=== PATIENT | male | born 1960 | race Caucasian/White ===

== ENCOUNTER 2018-02-28 08:57 | Emergency (ER) | payer MEDICARE, MEDICAID ==
[~2018-02-28] VITALS: Ht 175.3 cm; Wt 96.0 kg
[~2018-02-28 08:57] MED LIST: ASEN10TA9 SL; BENZ1TAB61 PO; CARB200T4 PO; CLON1TAB11 PO; ENAL20TA PO; FENO145T32 PO; FLUT100B INH; LORA10TA62 PO; MELO15TA24 PO; PRAZ1CAP2 PO; PROP60TA PO; QUET400T PO; ROSU20TA PO; TRAZ-137 PO; VENL150C6 PO; ZIPR40CA2 PO
[2018-02-28] MEDS ORDERED: MECLIZINE CHEWABLE 25 MG TAB PO ONE (09:30)
[2018-02-28] MEDS ORDERED: MECLIZINE CHEWABLE 25 MG TAB ONE (09:36)
[2018-02-28 09:49] LABS: BASOPHILS # (AUTO) 0.04 x10^3/uL (0-0.1); BASOPHILS % (AUTO) 1 % (0-1); EOSINOPHILS # (AUTO) 0.19 x10^3/uL (0-0.4); EOSINOPHILS % (AUTO) 3 % (1-7); LYMPHOCYTES % (AUTO) 26 % (22-44); MD NO; MEAN CORPUSCULAR HEMOGLOBIN 31.5 pg (27.5-34.5); MEAN CORPUSCULAR HGB CONC 34.6 g/dL (33.2-36.2); MEAN CORPUSCULAR VOLUME 91.1 fL (81-97); MEAN PLATELET VOLUME 7.3 fL (7.4-10.4); MONOCYTES # (AUTO) 0.62 x10^3/uL (0.2-0.8); MONOCYTES % (AUTO) 8 % (2-9); NEUTROPHILS # (AUTO) 4.59 x10^3/uL (1.8-6.8); NEUTROPHILS % (AUTO) 63 % (42-75); PLATELET COUNT 256 x10^3/uL (130-400); RED BLOOD COUNT 4.55 x10^6/uL (4.38-5.82); RED CELL DISTRIBUTION WIDTH 12.9 % (9.4-14.8)
[2018-02-28 10:03] LABS: ALANINE AMINOTRANSFERASE 31 U/L (12-78); ALBUMIN 3.5 g/dL (3.4-5.0); ANION GAP 5 mmol/L (5-15); CALCIUM 8.2 mg/dL (8.5-10.1); CHLORIDE 98 mmol/L (98-107); CREATININE 0.82 mg/dL (0.7-1.3)
[2018-02-28 10:07] LABS: ALKALINE PHOSPHATASE 77 U/L (45-117); BILIRUBIN,TOTAL 0.3 mg/dL (0.2-1.0); TOTAL PROTEIN 6.9 g/dL (6.4-8.2); TROPONIN I < 0.015 ng/mL (0.000-0.045)
[2018-02-28 10:10] VITALS: BP 144/86
== END 2018-02-28 11:18 | disposition home or self-care (01) ==
LOC: ED 10:19
DX: H81.392 Other peripheral vertigo, left ear (principal); I10 Essential (primary) hypertension; J44.9 Chronic obstructive pulmonary disease, unspecified; E78.5 Hyperlipidemia, unspecified; R51 Headache; F20.9 Schizophrenia, unspecified; F17.200 Nicotine dependence, unspecified, uncomplicated; Z79.899 Other long term (current) drug therapy
CPT/HCPCS: 36415; 70450; 80053; 80307; 84484; 85025; 93005; 99285

== ENCOUNTER 2019-09-14 00:29 | Inpatient (IN) | payer MEDICARE, MEDICAID ==
[~2019-09-14] VITALS: Ht 175.3 cm; Wt 98.1 kg
[~2019-09-14 00:29] MED LIST changes: -ROSU20TA PO; +ROSU20TA2 PO; -TRAZ-137 PO; +TRAZ-175 PO
[2019-09-15] MEDS ORDERED: ONDANSETRON ODT 4 MG PO PRN (00:30)
[2019-09-15] MEDS ORDERED: BISACODYL 10 MG SUPP PR PRN (00:30)
[2019-09-15] MEDS ORDERED: ACETAMINOPHEN 325 MG TABLET PO PRN (00:30)
[2019-09-15] MEDS ORDERED: POLYETHYLENE GLYCOL 17 GM PACKET PO PRN (00:30)
[2019-09-15] MEDS ORDERED: DOCUSATE 100 MG CAPSULE PO PRN (00:30)
[2019-09-15 01:10] VITALS: BP_SYST 123; BP_SYST 131; BP_DIAS 79; BP_DIAS 91
[2019-09-15] MEDS ORDERED: ALPRazolam 1MG TAB PO PRN (01:30)
[2019-09-15] MEDS ORDERED: ZIPRASIDONE 40MG CAPSULE PO PRN (01:30)
[2019-09-15 01:39] VITALS: BP 131/91
[2019-09-15] MEDS ORDERED: QUET50TA9 PO (06:32)
[2019-09-15] MEDS ORDERED: QUET400T4 PO ×2 (06:33→10:03)
[2019-09-15] MEDS ORDERED: ALPR2TAB2 PO (06:34)
[2019-09-15] MEDS ORDERED: ZIPR80CA2 PO ×2 (06:35→10:03)
[2019-09-15 07:51] LABS: ALBUMIN 3.9 g/dL (3.4-5.0); BILIRUBIN, DIRECT 0.2 mg/dL (0.1-0.2)
[2019-09-15 07:53] VITALS: BP 129/88
[2019-09-15 07:54] LABS: BILIRUBIN,INDIRECT 0.4 mg/dL (0.0-2.0); BILIRUBIN,TOTAL 0.6 mg/dL (0.2-1.0); FREE T4 (FREE THYROXINE) 0.85 ng/dL (0.76-1.46); TOTAL PROTEIN 7.2 g/dL (6.4-8.2)
[2019-09-15] MEDS: NICOTINE 21 MG/24 HR PATCH.TD24 TD SCH (08:30)
[2019-09-15] MEDS ORDERED: LORazepam 0.5MG TABLET PO PRN (09:00)
[2019-09-15] MEDS ORDERED: BENZ1TAB61 PO (10:03)
[2019-09-15] MEDS ORDERED: TAMS-11 PO (10:03)
[2019-09-15] MEDS ORDERED: QUET100T4 PO (10:03)
[2019-09-15] MEDS ORDERED: METH500T7 PO (10:03)
[2019-09-15] MEDS ORDERED: LINA145C PO (10:03)
[2019-09-15] MEDS ORDERED: ALPR1TAB6 PO (10:03)
[2019-09-15] MEDS ORDERED: BUPR-173 PO (10:03)
[2019-09-15 12:46] LABS: MICROSCOPIC INDICATED
[2019-09-15 12:54] LABS: CULTURE INDICATED? YES
[2019-09-15] MEDS: LORazepam 0.5MG TABLET PO SCH ×3 (13:59→20:34)
[2019-09-15 15:54] LABS: CHOL/HDL RATIO 4.9; LDL/HDL RATIO 3.3 (0.5-3.0)
[2019-09-15 19:46] VITALS: BP 106/69
[2019-09-15] MEDS: ZIPRASIDONE 40MG CAPSULE PO SCH (20:33)
[2019-09-15] MEDS: TAMSULOSIN 0.4 MG CAP.ER.24H PO SCH (20:34)
[2019-09-15] MEDS: METHOCARBAMOL 500 MG TABLET PO SCH (20:41)
[2019-09-15] MEDS: QUETIAPINE 200 MG TABLET PO SCH (20:41)
[2019-09-15] MEDS ORDERED: CALCIUM CARBONATE 500 MG TAB.CHEW ONE (20:44)
[2019-09-16 07:48] VITALS: BP 116/77
[2019-09-16 08:16] LABS: CHOL/HDL RATIO 4.7
[2019-09-16] MEDS: METHOCARBAMOL 500 MG TABLET PO SCH ×2 (08:54→20:38)
[2019-09-16] MEDS: LORazepam 0.5MG TABLET PO SCH ×3 (08:54→20:38)
[2019-09-16] MEDS: NICOTINE 21 MG/24 HR PATCH.TD24 TD SCH (08:54)
[2019-09-16 19:57] VITALS: BP 117/77
[2019-09-16] MEDS: TAMSULOSIN 0.4 MG CAP.ER.24H PO SCH (20:37)
[2019-09-16] MEDS: ZIPRASIDONE 40MG CAPSULE PO SCH (20:38)
[2019-09-16] MEDS: QUETIAPINE 200 MG TABLET PO SCH (20:38)
[2019-09-17 07:24] VITALS: BP 96/95
[2019-09-17] MEDS: BUPROPION SR 100 MG TABLET PO SCH (08:15)
[2019-09-17] MEDS: LORazepam 0.5MG TABLET PO SCH ×3 (08:15→20:43)
[2019-09-17] MEDS: METHOCARBAMOL 500 MG TABLET PO SCH ×2 (08:15→20:42)
[2019-09-17] MEDS: NICOTINE 21 MG/24 HR PATCH.TD24 TD SCH (08:16)
[2019-09-17 19:47] VITALS: BP 114/75
[2019-09-17] MEDS: ZIPRASIDONE 40MG CAPSULE PO SCH (20:43)
[2019-09-17] MEDS: TAMSULOSIN 0.4 MG CAP.ER.24H PO SCH (20:43)
[2019-09-17] MEDS: QUETIAPINE 200 MG TABLET PO SCH (20:43)
[2019-09-17] MEDS ORDERED: CALCIUM CARBONATE 500 MG TAB.CHEW PO PRN (21:00)
[2019-09-18 07:00] VITALS: BP 144/86
[2019-09-18] MEDS: BUPROPION SR 100 MG TABLET PO SCH (09:30)
[2019-09-18] MEDS: LORazepam 0.5MG TABLET PO SCH ×3 (09:31→20:15)
[2019-09-18] MEDS: METHOCARBAMOL 500 MG TABLET PO SCH ×2 (09:31→20:15)
[2019-09-18] MEDS: NICOTINE 21 MG/24 HR PATCH.TD24 TD SCH (09:31)
[2019-09-18 19:49] VITALS: BP 133/87
[2019-09-18] MEDS: ZIPRASIDONE 40MG CAPSULE PO SCH (20:15)
[2019-09-18] MEDS: QUETIAPINE 200 MG TABLET PO SCH (20:16)
[2019-09-18] MEDS: TAMSULOSIN 0.4 MG CAP.ER.24H PO SCH (20:16)
[2019-09-19 07:28] VITALS: BP 126/70
[2019-09-19] MEDS: BUPROPION SR 100 MG TABLET PO SCH (08:34)
[2019-09-19] MEDS: METHOCARBAMOL 500 MG TABLET PO SCH (08:34)
[2019-09-19] MEDS: LORazepam 0.5MG TABLET PO SCH (08:34)
[2019-09-19] MEDS: NICOTINE 21 MG/24 HR PATCH.TD24 TD SCH (08:35)
[2019-09-19] MEDS ORDERED: TAMS-11 PO (09:24)
[2019-09-19] MEDS ORDERED: ZIPR40CA2 PO (09:24)
[2019-09-19] MEDS ORDERED: BUPR-173 PO (09:24)
[2019-09-19] MEDS ORDERED: METH500T7 PO (09:24)
[2019-09-19] MEDS ORDERED: QUET200T PO (09:24)
[2019-09-19] MEDS ORDERED: NICO-487 TD (09:24)
== END 2019-09-19 10:35 | disposition home or self-care (01) | DRG 885 ==
LOC: 3E 09-15 01:16
PROVIDERS: ADMIT Psychiatry & Neurology Psychosomatic Medicine; ATTEND Psychiatry & Neurology Psychosomatic Medicine
PROC: 5A09357 Assistance with Respiratory Ventilation, Less than 24 Consecutive Hours, Continuous Positive Airway Pressure (ICD-10-PCS; principal; 2019-09-15)
PROC: 5A09357 Assistance with Respiratory Ventilation, Less than 24 Consecutive Hours, Continuous Positive Airway Pressure (ICD-10-PCS; 2019-09-16)
PROC: 5A09357 Assistance with Respiratory Ventilation, Less than 24 Consecutive Hours, Continuous Positive Airway Pressure (ICD-10-PCS; 2019-09-18)
DX: F31.60 Bipolar disorder, current episode mixed, unspecified (principal); F28 Other psychotic disorder not due to a substance or known physiological condition; E78.5 Hyperlipidemia, unspecified; F12.10 Cannabis abuse, uncomplicated; F17.200 Nicotine dependence, unspecified, uncomplicated; F41.1 Generalized anxiety disorder; F43.10 Post-traumatic stress disorder, unspecified; I10 Essential (primary) hypertension; K58.9 Irritable bowel syndrome, unspecified; Z82.3 Family history of stroke; G47.33 Obstructive sleep apnea (adult) (pediatric); R33.9 Retention of urine, unspecified
CPT/HCPCS: 36415; 71045; 80048; 80061; 80076; 80307; 81001; 82040; 82607; 84439; 84443; 85025; 87086; 87147; 87491; 87591; 93005; 94660; 99284

== ENCOUNTER 2019-09-14 17:57 | Emergency (ER) | payer MEDICARE, MEDICAID ==
[~2019-09-14] VITALS: Ht 177.8 cm; Wt 100.0 kg
--- NOTE | 2019-09-14 18:04 | NUR ---
DR GABBY MOON OF PT
[2019-09-14 18:27] LABS: BASOPHILS # (AUTO) 0.02 x10^3/uL (0-0.1); BASOPHILS % (AUTO) 0 % (0-1); EOSINOPHILS # (AUTO) 0.07 x10^3/uL (0-0.4); EOSINOPHILS % (AUTO) 1 % (1-7); LYMPHOCYTES # (AUTO) 1.86 x10^3/uL (1-3.4); LYMPHOCYTES % (AUTO) 18 % (22-44); MD NO; MEAN CORPUSCULAR HEMOGLOBIN 30.5 pg (27.5-34.5); MEAN CORPUSCULAR VOLUME 89.5 fL (81-97); MEAN PLATELET VOLUME 8.6 fL (7.4-10.4); MONOCYTES # (AUTO) 0.42 x10^3/uL (0.2-0.8); MONOCYTES % (AUTO) 4 % (2-9); NEUTROPHILS # (AUTO) 8.26 x10^3/uL (1.8-6.8); NEUTROPHILS % (AUTO) 78 % (42-75); PLATELET COUNT 223 x10^3/uL (130-400); RED BLOOD COUNT 5.11 x10^6/uL (4.38-5.82); RED CELL DISTRIBUTION WIDTH 13.8 % (9.4-14.8)
[2019-09-14 18:38] LABS: ANION GAP 10 mmol/L (5-15); CHLORIDE 107 mmol/L (98-107); CREATININE 1.06 mg/dL (0.7-1.3); SALICYLATE LEVEL 3.9 mg/dL (2.8-20.0)
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
[2019-09-14 20:10] LABS: AMPHETAMINE SCREEN, URINE Negative (Negative); BARBITURATE SCREEN, URINE Negative (Negative); BENZODIAZEPINE SCREEN, URINE Positive (Negative); CANNABINOID SCREEN, URINE Negative (Negative); COCAINE SCREEN, URINE Negative (Negative); METHADONE SCREEN, URINE Negative (Negative); OPIATE SCREEN, URINE Negative (Negative)
--- NOTE | 2019-09-14 20:39 | NUR ---
TP RN: CATERINA called they are aware of patient packet faxed to: [facility]
--- NOTE | 2019-09-14 20:43 | NUR ---
Friend Nicole [phone]. Patient has given permission to give Nicole all information.
[2019-09-14] MEDS ORDERED: QUETIAPINE 100MG TABLET ONE (20:59)
[2019-09-14] MEDS ORDERED: QUETIAPINE 100MG TABLET PO SCH (21:00)
[2019-09-14] MEDS ORDERED: NICOTINE 7 MG/24 HR PATCH.TD24 ONE (21:58)
[2019-09-14] MEDS ORDERED: NICOTINE 7 MG/24 HR PATCH.TD24 TD SCH (22:00)
--- NOTE | 2019-09-14 22:10 | NUR ---
Intake call received from . There is no confirmation of acceptance at this time.
[2019-09-14] MEDS ORDERED: OLANZAPINE 10 MG TABLET ONE (23:15)
--- NOTE | 2019-09-14 23:18 | NUR ---
Pt has been accepted by [facility], will be admitted after midnight.
--- NOTE | 2019-09-14 23:19 | NUR ---
Pt given Zyprexa for continued c/o anxiety. Pt also states he feels he is in withdrawal from his Xanax, has not missed a dose yet.
--- NOTE | 2019-09-14 23:29 | NUR ---
EKG DONE ON REQUEST OF THE BEHAVIOR UN[facility].
--- NOTE | 2019-09-14 23:30 | NUR ---
TP RN: PT ACCEPTED TO [facility]
--- NOTE | 2019-09-15 00:36 | NUR ---
Pt reports his anxiety has improved after taking the Zyprexa.
--- NOTE | 2019-09-15 00:54 | NUR ---
Report called to Behavioral Health
[2019-09-15 01:06] VITALS: BP 118/88
[2019-09-15] MEDS ORDERED: QUET50TA9 PO (06:32)
[2019-09-15] MEDS ORDERED: QUET400T4 PO ×2 (06:33→10:03)
[2019-09-15] MEDS ORDERED: ALPR2TAB2 PO (06:34)
[2019-09-15] MEDS ORDERED: ZIPR80CA2 PO ×2 (06:35→10:03)
[2019-09-15] MEDS ORDERED: NEOSPORIN OINT. PKT 1 PACKET ONE (07:31)
[2019-09-15] MEDS ORDERED: OLANZAPINE 10 MG TABLET PO SCH (09:00)
[2019-09-15] MEDS ORDERED: LINA145C PO (10:03)
[2019-09-15] MEDS ORDERED: QUET100T4 PO (10:03)
[2019-09-15] MEDS ORDERED: ALPR1TAB6 PO (10:03)
[2019-09-15] MEDS ORDERED: BUPR-173 PO (10:03)
[2019-09-15] MEDS ORDERED: BENZ1TAB61 PO (10:03)
[2019-09-15] MEDS ORDERED: TAMS-11 PO (10:03)
[2019-09-15] MEDS ORDERED: METH500T7 PO (10:03)
== END 2019-09-15 01:14 | disposition other institution (70) ==
LOC: ED 18:44
DX: R45.851 Suicidal ideations (principal); F25.0 Schizoaffective disorder, bipolar type; F41.9 Anxiety disorder, unspecified; R00.0 Tachycardia, unspecified; I10 Essential (primary) hypertension; J44.9 Chronic obstructive pulmonary disease, unspecified; F20.9 Schizophrenia, unspecified; E78.5 Hyperlipidemia, unspecified
CPT/HCPCS: 36415; 80048; 80307; 82040; 84443; 85025; 99284

== ENCOUNTER 2019-09-19 14:16 | Emergency (ER) | payer MEDICARE, MEDICAID ==
[~2019-09-19] VITALS: Ht 175.3 cm; Wt 100.5 kg
[~2019-09-19 14:16] MED LIST changes: +ALPR1TAB6 PO; +ALPR2TAB2 PO; +BUPR-173 PO; +LINA145C PO; +METH500T7 PO; +NICO-487 TD; +QUET100T4 PO; +QUET200T PO; +QUET400T4 PO; +QUET50TA9 PO; +TAMS-11 PO; +ZIPR80CA2 PO
[2019-09-19 14:19] VITALS: BP 148/91
--- NOTE | 2019-09-19 14:35 | NUR ---
PATIENT LEFT THE HOSPITAL TODAY FOR SI HOLD, WENT HOME, AND THEN FELT SUICIDAL AGAIN AND CAME BACK TO THE ER. HE STATES HE IS SUICIDAL.
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
--- NOTE | 2019-09-19 14:42 | NUR ---
[facility] TALKING TO PATIENT.
[2019-09-19 14:43] LABS: BASOPHILS # (AUTO) 0.05 x10^3/uL (0-0.1); BASOPHILS % (AUTO) 1 % (0-1); EOSINOPHILS # (AUTO) 0.13 x10^3/uL (0-0.4); EOSINOPHILS % (AUTO) 2 % (1-7); LYMPHOCYTES # (AUTO) 2.24 x10^3/uL (1-3.4); LYMPHOCYTES % (AUTO) 26 % (22-44); MD NO; MEAN CORPUSCULAR HEMOGLOBIN 30.4 pg (27.5-34.5); MEAN CORPUSCULAR HGB CONC 33.7 g/dL (33.2-36.2); MEAN CORPUSCULAR VOLUME 90.1 fL (81-97); MEAN PLATELET VOLUME 8.1 fL (7.4-10.4); MONOCYTES # (AUTO) 0.71 x10^3/uL (0.2-0.8); MONOCYTES % (AUTO) 8 % (2-9); NEUTROPHILS # (AUTO) 5.46 x10^3/uL (1.8-6.8); NEUTROPHILS % (AUTO) 64 % (42-75); PLATELET COUNT 223 x10^3/uL (130-400); RED BLOOD COUNT 4.92 x10^6/uL (4.38-5.82); RED CELL DISTRIBUTION WIDTH 13.6 % (9.4-14.8)
[2019-09-19 14:53] LABS: ALANINE AMINOTRANSFERASE 44 U/L (12-78); ALBUMIN 3.9 g/dL (3.4-5.0); ANION GAP 10 mmol/L (5-15); CHLORIDE 108 mmol/L (98-107); CREATININE 1.12 mg/dL (0.7-1.3); SALICYLATE LEVEL 2.7 mg/dL (2.8-20.0)
[2019-09-19] MEDS ORDERED: LORazepam 1MG TABLET ONE (14:54)
[2019-09-19 14:55] LABS: ALKALINE PHOSPHATASE 74 U/L (45-117); BILIRUBIN,TOTAL 0.2 mg/dL (0.2-1.0); TOTAL PROTEIN 7.1 g/dL (6.4-8.2)
[2019-09-19] MEDS ORDERED: LORazepam 1MG TABLET PO ONE (15:00)
--- NOTE | 2019-09-19 15:35 | NUR ---
REPORT RECEIVED FROM TAMIKO PAEZ. ASSUMED CARE
--- NOTE | 2019-09-19 15:42 | NUR ---
ASSUMED CARE. PLACED PT EDUARDOS IN PT BELONGING BAG. PT STATES THAT HE HAS 900 DOLLARS IN HIS WALLET. DID NOT OPEN WALLET TO CONFIRM.
--- NOTE | 2019-09-19 16:41 | NUR ---
THROUGHTPUT: [facility] HAS ACCEPTED PATIENT FOR ADMIT
== END 2019-09-19 16:59 ==
LOC: ED 15:19
DX: F32.9 Major depressive disorder, single episode, unspecified (principal); R45.851 Suicidal ideations; F22 Delusional disorders; I10 Essential (primary) hypertension; E78.5 Hyperlipidemia, unspecified; J44.9 Chronic obstructive pulmonary disease, unspecified; F20.9 Schizophrenia, unspecified
CPT/HCPCS: 36415; 80053; 80307; 85025; 99284

== ENCOUNTER 2019-10-09 19:30 | Emergency (ER) | payer MEDICARE, MEDICAID ==
[~2019-10-09] VITALS: Ht 175.3 cm; Wt 104.0 kg
[~2019-10-09 19:30] MED LIST changes: -ENAL20TA PO; +ENAL20TA9 PO
[2019-10-09 19:33] VITALS: BP 111/70
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
[2019-10-09] MEDS ORDERED: DIPHENHYDRAMINE 50 MG/ML, 1ML ONE (20:20)
--- NOTE | 2019-10-09 20:24 | NUR ---
pt medicated per jul, lab at bedside
[2019-10-09] MEDS ORDERED: DIPHENHYDRAMINE 50 MG/ML, 1ML IM ONE (20:30)
[2019-10-09 20:37] LABS: BASOPHILS # (AUTO) 0.07 x10^3/uL (0-0.1); BASOPHILS % (AUTO) 1 % (0-1); EOSINOPHILS # (AUTO) 0.28 x10^3/uL (0-0.4); EOSINOPHILS % (AUTO) 2 % (1-7); LYMPHOCYTES # (AUTO) 3.49 x10^3/uL (1-3.4); LYMPHOCYTES % (AUTO) 30 % (22-44); MD NO; MEAN CORPUSCULAR HEMOGLOBIN 30.5 pg (27.5-34.5); MEAN CORPUSCULAR HGB CONC 34.2 g/dL (33.2-36.2); MEAN PLATELET VOLUME 8.4 fL (7.4-10.4); MONOCYTES # (AUTO) 1.06 x10^3/uL (0.2-0.8); MONOCYTES % (AUTO) 9 % (2-9); NEUTROPHILS # (AUTO) 6.63 x10^3/uL (1.8-6.8); NEUTROPHILS % (AUTO) 58 % (42-75); PLATELET COUNT 217 x10^3/uL (130-400); RED BLOOD COUNT 4.63 x10^6/uL (4.38-5.82); RED CELL DISTRIBUTION WIDTH 13.6 % (9.4-14.8)
[2019-10-09 20:47] LABS: ALBUMIN 3.7 g/dL (3.4-5.0); ANION GAP 5 mmol/L (5-15); CHLORIDE 104 mmol/L (98-107); CREATININE 1.15 mg/dL (0.7-1.3)
== END 2019-10-09 22:15 | disposition home or self-care (01) ==
LOC: ED 21:05
DX: G24.02 Drug induced acute dystonia (principal); K59.00 Constipation, unspecified; J44.9 Chronic obstructive pulmonary disease, unspecified; I10 Essential (primary) hypertension; F20.9 Schizophrenia, unspecified; F17.210 Nicotine dependence, cigarettes, uncomplicated
CPT/HCPCS: 36415; 80048; 82040; 85025; 96372; 99283; 99406; J1200

== ENCOUNTER 2019-10-10 01:58 | Emergency (ER) | payer MEDICARE, MEDICAID ==
[~2019-10-10] VITALS: Ht 175.3 cm; Wt 106.0 kg
--- NOTE | 2019-10-10 02:27 | NUR ---
assessment made. PA at bedside.
[2019-10-10] MEDS ORDERED: LORazepam 1MG TABLET PO ONE (02:30)
[2019-10-10] MEDS ORDERED: LORazepam 1MG TABLET ONE (02:32)
--- NOTE | 2019-10-10 02:34 | NUR ---
patient medicated per MAR.
[2019-10-10 02:59] VITALS: BP 115/81
--- NOTE | 2019-10-10 02:59 | NUR ---
patient discharged with prescription and instruction. verbalized understanding.
== END 2019-10-10 03:08 ==
LOC: ED 02:38
DX: G24.02 Drug induced acute dystonia (principal); R11.0 Nausea
CPT/HCPCS: 99283

== ENCOUNTER 2020-02-27 19:36 | Emergency (ER) | payer MEDICARE, MEDICAID ==
[~2020-02-27] VITALS: Ht 175.3 cm; Wt 104.0 kg
--- NOTE | 2020-02-27 20:00 | NUR ---
Note joanne in EDM - 02/27/20 at 2034 by AKIL Pt agitated and tearful, yelling out that he wants to , stating he needs to call mother to let her know he's ok. This RN allowed pt to use phone at d/c desk to call mother. Able to reach her. This RN and sonia remain with pt. Pt needed reminders not to use profanity at desk. Pt had effective conversation with mother. Back to [facility] without issue. Provided with michelle. Sonia remains in immediate vicinity of pt. Call ram within reach.
--- NOTE | 2020-02-27 20:20 | NUR ---
Pt changed into hospital gown. Provided with hospital socks. Personal belongings placed in 2 patient belongings bags with pt's labels affixed to each bag, bags placed in locker. Pt has glasses within his posession. Safety doors utilized in pt's room. Sitter remains within immediate vicinity of pt
[2020-02-27 20:26] LABS: BASOPHILS % (AUTO) 1 % (0-1); EOSINOPHILS % (AUTO) 3 % (1-7); LYMPHOCYTES % (AUTO) 30 % (22-44); MEAN CORPUSCULAR HEMOGLOBIN 30.4 pg (27.5-34.5); MEAN CORPUSCULAR HGB CONC 34.2 g/dL (33.2-36.2); MONOCYTES % (AUTO) 8 % (2-9); NEUTROPHILS % (AUTO) 58 % (42-75); PLATELET COUNT 224 x10^3/uL (130-400); RED BLOOD COUNT 4.72 x10^6/uL (4.38-5.82); RED CELL DISTRIBUTION WIDTH 13.8 % (9.4-14.8)
[2020-02-27 20:33] LABS: MD NO
--- NOTE | 2020-02-27 20:35 | NUR ---
Resting comfortably on stretcher. No s/sx acute distress. Visible chest rise/fall noted. Sitter remains at bedside
[2020-02-27 20:36] LABS: ALBUMIN 3.5 g/dL (3.4-5.0); ANION GAP 5 mmol/L (5-15); CALCIUM 8.7 mg/dL (8.5-10.1); CHLORIDE 110 mmol/L (98-107); CREATININE 0.98 mg/dL (0.7-1.3); SALICYLATE LEVEL 3.1 mg/dL (2.8-20.0)
--- NOTE | 2020-02-27 21:08 | NUR ---
Provided pt with snack. Resting comfortably on stretcher. Call light within reach. Sitter remains in immediate vicinity of pt
[2020-02-27 21:50] LABS: AMPHETAMINE SCREEN, URINE Negative (Negative); BARBITURATE SCREEN, URINE Negative (Negative); BENZODIAZEPINE SCREEN, URINE Negative (Negative); CANNABINOID SCREEN, URINE Negative (Negative); COCAINE SCREEN, URINE Negative (Negative); METHADONE SCREEN, URINE Negative (Negative); OPIATE SCREEN, URINE Negative (Negative)
--- NOTE | 2020-02-27 22:03 | NUR ---
A&o x4, answering questions appropriately. States long hx of psych disorders including schizoaffective disorder and bipolar. Per pt, his psych doctor has changed x4 over last year with each new provider making adjustments to meds. Pt states new doctor wanted him to taper psych meds. Reports taking decreased seroquel/klonopin doses for the last few days. Robinson increased auditory hallucinations with associated SI thoughts today. Took klonopin x3 today. States he has been thinking about jumping off his building. Denies pain. Denies fever/chills. Denies N/V/D. Ambulating independently, steady gait
--- NOTE | 2020-02-27 23:10 | NUR ---
Pt reports feeling increasingly more anxious. Requests dose of ativan. MD aware. Pt remains cooperative. Sitter remains within immediate vicinity
[2020-02-27] MEDS ORDERED: LORazepam 1MG TABLET ONE (23:14)
--- NOTE | 2020-02-27 23:15 | NUR ---
Telepsych in progress
[2020-02-27] MEDS ORDERED: LORazepam 1MG TABLET PO ONE (23:30)
--- NOTE | 2020-02-28 00:35 | NUR ---
Resting comfortably on stretcher. No s/sx acute distress. Visible chest rise/fall noted. Sitter remains within immediate vicinity of pt
--- NOTE | 2020-02-28 00:36 | NUR ---
Throughput RN: [facility].
--- NOTE | 2020-02-28 01:12 | NUR ---
[facility] accepts. Accepting doctor is Dr. Stewart.
--- NOTE | 2020-02-28 01:30 | NUR ---
Report given to Madalyn MORRISON
--- NOTE | 2020-02-28 02:47 | NUR ---
Pt resting comfortably on stretcher. No s/sx acute distress. Equal chest rise/fall noted. Sitter remains at bedside
[2020-02-28 03:33] VITALS: BP 112/70
== END 2020-02-28 03:37 | disposition other institution (70) ==
LOC: ED 21:46
DX: R45.851 Suicidal ideations (principal); F25.8 Other schizoaffective disorders; F17.200 Nicotine dependence, unspecified, uncomplicated; I10 Essential (primary) hypertension; E78.5 Hyperlipidemia, unspecified; J44.9 Chronic obstructive pulmonary disease, unspecified
CPT/HCPCS: 36415; 80048; 80307; 82040; 85025; 99284

== ENCOUNTER 2020-03-16 18:57 | Emergency (ER) | payer MEDICARE, MEDICAID ==
[~2020-03-16] VITALS: Ht 177.8 cm; Wt 125.0 kg
[~2020-03-16 18:57] MED LIST changes: +PALI156D IM; +QUET100T PO
[2020-03-16 19:59] LABS: BASOPHILS % (AUTO) 1 % (0-1); EOSINOPHILS % (AUTO) 2 % (1-7); LYMPHOCYTES % (AUTO) 30 % (22-44); MEAN CORPUSCULAR HEMOGLOBIN 30.8 pg (27.5-34.5); MEAN CORPUSCULAR HGB CONC 34.3 g/dL (33.2-36.2); MEAN PLATELET VOLUME 8.3 fL (7.4-10.4); MONOCYTES % (AUTO) 10 % (2-9); NEUTROPHILS % (AUTO) 58 % (42-75); PLATELET COUNT 233 x10^3/uL (130-400); RED BLOOD COUNT 4.86 x10^6/uL (4.38-5.82); RED CELL DISTRIBUTION WIDTH 13.3 % (9.4-14.8)
--- NOTE | 2020-03-16 20:02 | NUR ---
task rn: pt ambulated to restroom and urine collected, pt sitting on wall
[2020-03-16 20:05] LABS: ALANINE AMINOTRANSFERASE 38 U/L (12-78); ALBUMIN 4.1 g/dL (3.4-5.0); ANION GAP 5 mmol/L (5-15); CALCIUM 9.5 mg/dL (8.5-10.1); CHLORIDE 109 mmol/L (98-107); MD NO; SALICYLATE LEVEL 3.2 mg/dL (2.8-20.0)
[2020-03-16 20:08] LABS: ALKALINE PHOSPHATASE 88 U/L (45-117); BILIRUBIN,TOTAL 0.5 mg/dL (0.2-1.0); CREATININE 0.97 mg/dL (0.7-1.3); TOTAL PROTEIN 7.4 g/dL (6.4-8.2)
[2020-03-16 20:17] LABS: MICROSCOPIC NOT IND
[2020-03-16 20:28] LABS: AMPHETAMINE SCREEN, URINE Negative (Negative); BARBITURATE SCREEN, URINE Negative (Negative); BENZODIAZEPINE SCREEN, URINE Negative (Negative); CANNABINOID SCREEN, URINE Negative (Negative); COCAINE SCREEN, URINE Negative (Negative); METHADONE SCREEN, URINE Negative (Negative); OPIATE SCREEN, URINE Negative (Negative)
--- NOTE | 2020-03-16 22:44 | NUR ---
PT IN ROOM AWAITING TELEPSYCH.
--- NOTE | 2020-03-16 22:45 | NUR ---
REPORT GIVEN TO JANETTE MORRISON.
[2020-03-16 23:10] VITALS: BP 153/101
--- NOTE | 2020-03-17 01:00 | NUR ---
Dr. Stewart accepted this referral for [facility]; patient will be admitted to [facility]; waiting for covid test result.
== END 2020-03-17 02:11 | disposition other institution (70) ==
LOC: ED 03-17 00:21
DX: F22 Delusional disorders (principal); F23 Brief psychotic disorder; F31.9 Bipolar disorder, unspecified; Z11.59 Encounter for screening for other viral diseases; R00.0 Tachycardia, unspecified; I10 Essential (primary) hypertension
CPT/HCPCS: 36415; 80053; 80307; 81003; 85025; 87635; 99284

== ENCOUNTER 2020-03-17 01:34 | Inpatient (IN) | payer MEDICARE, MEDICAID ==
[~2020-03-17] VITALS: Ht 175.3 cm; Wt 104.0 kg
[2020-03-17] MEDS ORDERED: BISACODYL 10 MG SUPP PR PRN (02:00)
[2020-03-17] MEDS ORDERED: POLYETHYLENE GLYCOL 17 GM PACKET PO PRN (02:00)
[2020-03-17] MEDS ORDERED: DOCUSATE 100 MG CAPSULE PO PRN (02:00)
[2020-03-17] MEDS ORDERED: ONDANSETRON ODT 4 MG PO PRN (02:00)
[2020-03-17] MEDS ORDERED: DIPHENHYDRAMINE 25 MG CAPSULE PO PRN (02:30)
[2020-03-17 02:42] VITALS: BP 150/101
[2020-03-17 03:06] VITALS: BP 150/101
[2020-03-17] MEDS ORDERED: QUETIAPINE 100MG TABLET PO ONE (03:30)
[2020-03-17] MEDS: NICOTINE 21 MG/24 HR PATCH.TD24 TD SCH (05:40)
[2020-03-17 07:23] VITALS: BP 122/74
[2020-03-17] MEDS: BENZTROPINE 1 MG TABLET PO SCH ×2 (07:50→20:18)
[2020-03-17] MEDS ORDERED: NICOTINE 21 MG/24 HR PATCH.TD24 TD ONE ×2 (09:00)
[2020-03-17] MEDS ORDERED: FLU VACC QS2020-21(6MOS UP)/PF 60MCG/0.5 ML SYR IM ONE (09:30)
[2020-03-17] MEDS: QUETIAPINE 100MG TABLET PO SCH (20:18)
[2020-03-17] MEDS: LORazepam 1MG TABLET PO PRN (20:18)
[2020-03-17] MEDS ORDERED: DOXEPIN 25 MG CAPSULE PO SCH (21:00)
[2020-03-17 22:43] VITALS: BP 143/79
[2020-03-18 07:27] VITALS: BP 130/69
[2020-03-18] MEDS: BENZTROPINE 1 MG TABLET PO SCH ×2 (08:08→20:04)
[2020-03-18] MEDS: NICOTINE 21 MG/24 HR PATCH.TD24 TD SCH (08:08)
[2020-03-18] MEDS: DIPHENHYDRAMINE 25 MG CAPSULE PO PRN ×2 (09:12→20:05)
[2020-03-18] MEDS: ACETAMINOPHEN 325 MG TABLET PO PRN (11:57)
[2020-03-18] MEDS: METHOCARBAMOL 500 MG TABLET PO PRN ×2 (15:35→20:04)
[2020-03-18] MEDS: QUETIAPINE 100MG TABLET PO SCH (20:05)
[2020-03-18] MEDS: LORazepam 1MG TABLET PO PRN (20:05)
[2020-03-18 20:06] VITALS: BP_SYST 156; BP_SYST 166; BP_DIAS 106; BP_DIAS 113
[2020-03-18 21:02] VITALS: BP 162/95
[2020-03-19 06:07] VITALS: BP 132/82
[2020-03-19 07:35] VITALS: BP 139/93
[2020-03-19] MEDS: BENZTROPINE 1 MG TABLET PO SCH ×2 (08:15→20:12)
[2020-03-19] MEDS: NICOTINE 21 MG/24 HR PATCH.TD24 TD SCH (08:16)
[2020-03-19] MEDS: ZIPRASIDONE 40MG CAPSULE PO SCH ×2 (12:18→20:13)
[2020-03-19] MEDS: METHOCARBAMOL 500 MG TABLET PO PRN (12:27)
[2020-03-19 12:40] VITALS: BP 151/91
[2020-03-19 18:52] VITALS: BP 144/95
[2020-03-19] MEDS: DIPHENHYDRAMINE 25 MG CAPSULE PO PRN (20:12)
[2020-03-19] MEDS: QUETIAPINE 100MG TABLET PO SCH (20:12)
[2020-03-19] MEDS: LORazepam 1MG TABLET PO PRN (20:13)
[2020-03-19] MEDS: HYDROCORTISONE CRM 2.5%, 20GM TP PRN (21:19)
[2020-03-20 07:25] VITALS: BP 138/82
[2020-03-20] MEDS: NICOTINE 21 MG/24 HR PATCH.TD24 TD SCH (08:47)
[2020-03-20] MEDS: BENZTROPINE 1 MG TABLET PO SCH ×2 (08:47→20:59)
[2020-03-20] MEDS: ZIPRASIDONE 40MG CAPSULE PO SCH ×2 (08:47→20:59)
[2020-03-20] MEDS: HYDROCORTISONE CRM 2.5%, 20GM TP PRN (09:06)
[2020-03-20] MEDS: LORazepam 1MG TABLET PO PRN ×2 (09:06→20:59)
[2020-03-20] MEDS: METHOCARBAMOL 500 MG TABLET PO PRN ×3 (09:06→20:59)
[2020-03-20] MEDS: DIPHENHYDRAMINE 25 MG CAPSULE PO PRN ×2 (16:32→20:59)
[2020-03-20 19:59] VITALS: BP 139/92
[2020-03-20] MEDS: QUETIAPINE 100MG TABLET PO SCH (20:59)
[2020-03-21] MEDS: TRAZODONE 100MG TABLET PO PRN ×2 (00:25→20:29)
[2020-03-21] MEDS: HYDROCORTISONE CRM 2.5%, 20GM TP PRN ×2 (00:26→20:34)
[2020-03-21] MEDS: LORazepam 1MG TABLET PO PRN ×3 (02:44→20:30)
[2020-03-21 07:09] VITALS: BP 142/84
[2020-03-21] MEDS: BENZTROPINE 1 MG TABLET PO SCH ×2 (07:48→20:29)
[2020-03-21] MEDS: ZIPRASIDONE 40MG CAPSULE PO SCH ×2 (07:48→20:29)
[2020-03-21] MEDS: NICOTINE 21 MG/24 HR PATCH.TD24 TD SCH (07:49)
[2020-03-21] MEDS: METHOCARBAMOL 500 MG TABLET PO PRN ×2 (14:49→20:29)
[2020-03-21 19:50] VITALS: BP 145/93
[2020-03-21] MEDS: QUETIAPINE 100MG TABLET PO SCH (20:29)
[2020-03-21] MEDS: DIPHENHYDRAMINE 25 MG CAPSULE PO PRN (20:29)
[2020-03-22 07:00] VITALS: BP 137/84
[2020-03-22] MEDS: NICOTINE 21 MG/24 HR PATCH.TD24 TD SCH (09:25)
[2020-03-22] MEDS: METHOCARBAMOL 500 MG TABLET PO PRN ×3 (09:26→20:26)
[2020-03-22] MEDS: BENZTROPINE 1 MG TABLET PO SCH ×2 (09:26→20:26)
[2020-03-22] MEDS: ACETAMINOPHEN 325 MG TABLET PO PRN (09:26)
[2020-03-22] MEDS: ZIPRASIDONE 40MG CAPSULE PO SCH ×2 (09:26→20:26)
[2020-03-22] MEDS ORDERED: MAGNESIUM CITRATE 300ML ORAL SOL PO SCH (14:00)
[2020-03-22 20:13] VITALS: BP 159/90
[2020-03-22] MEDS: DIPHENHYDRAMINE 25 MG CAPSULE PO PRN (20:26)
[2020-03-22] MEDS: TRAZODONE 100MG TABLET PO PRN (20:26)
[2020-03-22] MEDS: QUETIAPINE 100MG TABLET PO SCH (20:27)
[2020-03-22] MEDS: LORazepam 1MG TABLET PO PRN (20:41)
[2020-03-23 07:35] VITALS: BP 137/87
[2020-03-23] MEDS: ZIPRASIDONE 40MG CAPSULE PO SCH ×2 (07:58→21:00)
[2020-03-23] MEDS: METHOCARBAMOL 500 MG TABLET PO PRN ×3 (07:58→20:26)
[2020-03-23] MEDS: BENZTROPINE 1 MG TABLET PO SCH ×2 (07:58→21:00)
[2020-03-23] MEDS: LORazepam 1MG TABLET PO PRN ×2 (07:58→20:21)
[2020-03-23] MEDS: NICOTINE 21 MG/24 HR PATCH.TD24 TD SCH (07:59)
[2020-03-23 19:52] VITALS: BP 137/87
[2020-03-23] MEDS: DIPHENHYDRAMINE 25 MG CAPSULE PO PRN (20:22)
[2020-03-23] MEDS: QUETIAPINE 100MG TABLET PO SCH (20:22)
[2020-03-24] MEDS ORDERED: TRAZODONE 150MG TABLET ONE
[2020-03-24] MEDS: TRAZODONE 100MG TABLET PO PRN ×3 (00:14→20:56)
[2020-03-24 07:28] VITALS: BP 123/77
[2020-03-24] MEDS: NICOTINE 21 MG/24 HR PATCH.TD24 TD SCH (08:26)
[2020-03-24] MEDS: ZIPRASIDONE 40MG CAPSULE PO SCH ×2 (08:27→20:56)
[2020-03-24] MEDS: BENZTROPINE 1 MG TABLET PO SCH ×2 (08:27→20:57)
[2020-03-24] MEDS: METHOCARBAMOL 500 MG TABLET PO PRN ×2 (10:38→20:56)
[2020-03-24] MEDS: ACETAMINOPHEN 325 MG TABLET PO PRN (10:38)
[2020-03-24] MEDS: LORazepam 1MG TABLET PO PRN ×2 (12:09→20:57)
[2020-03-24 20:05] VITALS: BP 141/91
[2020-03-24] MEDS ORDERED: ROPINIROLE 0.5MG TABLET PO SCH (21:00)
[2020-03-24] MEDS ORDERED: QUETIAPINE 200 MG TABLET PO SCH (21:00)
[2020-03-25 07:33] VITALS: BP 122/77
[2020-03-25] MEDS: NICOTINE 21 MG/24 HR PATCH.TD24 TD SCH (09:15)
[2020-03-25] MEDS: METHOCARBAMOL 500 MG TABLET PO PRN (09:16)
[2020-03-25] MEDS: ACETAMINOPHEN 325 MG TABLET PO PRN (09:16)
[2020-03-25] MEDS: BENZTROPINE 1 MG TABLET PO SCH (09:16)
[2020-03-25] MEDS: ZIPRASIDONE 40MG CAPSULE PO SCH (09:16)
[2020-03-25] MEDS ORDERED: NICO-487 TD (13:34)
[2020-03-25] MEDS ORDERED: TAMS-11 PO (13:34)
[2020-03-25] MEDS ORDERED: TRAZ-175 PO (13:34)
[2020-03-25] MEDS ORDERED: ZIPR40CA2 PO (13:34)
[2020-03-25] MEDS ORDERED: ROPI0.5T4 PO (13:34)
[2020-03-25] MEDS ORDERED: BENZ1TAB61 PO (13:34)
[2020-03-25] MEDS ORDERED: QUET200T PO (13:34)
== END 2020-03-25 15:05 | disposition home or self-care (01) | DRG 885 ==
LOC: 3E 02:11
PROVIDERS: ADMIT Psychiatry & Neurology Psychosomatic Medicine; ATTEND Psychiatry & Neurology Psychosomatic Medicine
DX: F31.64 Bipolar disorder, current episode mixed, severe, with psychotic features (principal); R45.851 Suicidal ideations; F25.0 Schizoaffective disorder, bipolar type; G47.33 Obstructive sleep apnea (adult) (pediatric); F17.210 Nicotine dependence, cigarettes, uncomplicated; D17.9 Benign lipomatous neoplasm, unspecified; E78.5 Hyperlipidemia, unspecified; F12.10 Cannabis abuse, uncomplicated; F41.1 Generalized anxiety disorder; F43.10 Post-traumatic stress disorder, unspecified; G25.81 Restless legs syndrome; G47.00 Insomnia, unspecified; I10 Essential (primary) hypertension; K58.9 Irritable bowel syndrome, unspecified; Z79.899 Other long term (current) drug therapy; Z83.3 Family history of diabetes mellitus; Z20.828 Contact with and (suspected) exposure to other viral communicable diseases; Z82.49 Family history of ischemic heart disease and other diseases of the circulatory system
CPT/HCPCS: 36415; 80053; 80307; 81003; 85025; 87635; 90686; 99284; Q0163